=== PATIENT | male | born 1945 | race Two or more races ===

== ENCOUNTER 2020-01-08 19:35 | Emergency (ER) | payer MEDICARE, OTHER ==
[~2020-01-08] VITALS: Ht 167.6 cm; Wt 110.7 kg
[2020-01-08 20:25] VITALS: BP 142/72
--- NOTE | 2020-01-08 21:35 | NUR ---
Patient discharged to home in stable condition. Written and verbal after care instructions given. Patient verbalizes understanding of instruction.
== END 2020-01-08 21:36 | disposition home or self-care (01) ==
LOC: ER 19:37
DX: J20.9 Acute bronchitis, unspecified (principal); I10 Essential (primary) hypertension; E11.9 Type 2 diabetes mellitus without complications; I25.2 Old myocardial infarction
CPT/HCPCS: 71045-TC